=== PATIENT | male | born 1985 | race Caucasian/White ===

== ENCOUNTER 2017-10-12 19:09 | Emergency (ER) | payer BC, SELFPAY ==
[2017-10-12 19:11] VITALS: BP 146/113; PULSE 92; PULSE 98; RESP 14; RESP 18; TEMP 36.7; O2SAT 98; BMI 32.8
[2017-10-12] MEDS: HYDROmorphone 1 MG/ML Syringe IM (21:09)
[2017-10-12 21:13] VITALS: RESP 14
--- NOTE | 2017-10-12 22:06 | ED.VISSUMM ---
- ER Visit Summary Date of Service: 10/12/17 Chief Complaint: Abscess History of Present Illness: The patient is a 32 M with no primary care physician. He reports that he has an abscess left buttock that began yesterday. Is a sharp pain is 1010 at worst and 9 out of 10 currently. Is worsened by sitting or walking. Is relieved by nothing. He denies any fever, chills, nausea, vomiting, or other constitutional symptoms. Physical Examination: Vitals: Stable. Afebrile. General: Well-nourished and well-developed. Head: Normocephalic atraumatic. Neck: Supple, no lymphadenopathy. No JVD. Nontender. Cardiovascular: Regular rate and rhythm. No murmurs. Respiratory: No respiratory distress. Clear to auscultation bilaterally. Abdominal: Soft, nontender, nondistended, normal bowel sounds. No guarding, rebound, or peritoneal signs. Back: Nontender. Extremities: Nontender, no edema. Skin: 3 cm erythematous, indurated area superior left gluteal cleft. This is not in the pilonidal location. Neurologic: Alert and oriented ?3. Cranial nerves II through XII are intact. Normal strength and sensation. Psych: Normal affect. Emergency Department Course and Treatment: Patient was given a milligram of Dilaudid IM. He had an I&D performed. He tolerated it well. He was given Augmentin here. Treatment Plan: Patient be discharged with Augmentin and Ariton. Instructed to follow-up with Dr. Tinoco in 3-5 days for another exam. Return to the emergency department for any worsening symptoms. Disposition: To home in improved and stable condition. Impression: 1. Left gluteal abscess. 2. I&D. Procedure Note: Abscess was cleansed with chlorhexidine soap. Anesthetized with 1% lidocaine without epinephrine. An incision was made with an 11 scalpel blade. A moderate amount of pus was drained. Curved hemostats were used to break up loculations. The wound was copiously irrigated with normal saline. It was loosely packed with iodoform gauze. The patient tolerated it well. This note was generated with [employer] dictation software. It may contain incorrect words, spelling, and punctuation that were not noted in review of the chart prior to signing ED Disposition - Plan for ED Patient: Disposition: Home or Assisted Living Chief Complaint: Abscess Instructions: ED Abscess IandD Prescriptions: Amox/Clavulanate Tablet [Augmentin Tablet] 875 mg PO Q12H #20 tablet Hydrocodone/Acetaminophen [Ariton 5-325 Tablet] 1 - 2 each PO 4X/DAY PRN PRN 5 Days #20 tablet PRN Reason: Pain Referrals: Magali Weiss MD [STAFF PHYSICIAN] - 3-5 Days
[2017-10-12] MEDS: HYDROcodone Bitartrate/Apap 5/325 Tablet PO (22:27)
[2017-10-12] MEDS: Amox/Clavulanate 875 MG Tablet PO (22:28)
[2017-10-12 22:29] VITALS: PULSE 90; RESP 16
== END 2017-10-12 22:31 | disposition home or self-care (01) ==
LOC: ED 20:27
PROVIDERS: Emergency Provider Emergency Medicine
DX: L02.31 Cutaneous abscess of buttock (principal); B96.89 Other specified bacterial agents as the cause of diseases classified elsewhere
CPT/HCPCS: 10061; 10060; 96372; 99283

== ENCOUNTER 2022-02-21 21:08 | Emergency (ER) | payer BC, SELFPAY ==
[2022-02-21 21:10] VITALS: BP 127/77; PULSE 94; RESP 20; TEMP 36.2; BMI 35.2
--- NOTE | 2022-02-21 21:30 | EKG12_ITS ---
Test Reason : CP Blood Pressure : / mmHG Vent. Rate : 100 BPM Atrial Rate : 100 BPM P-R Int : 160 ms QRS Dur : 088 ms QT Int : 354 ms P-R-T Axes : 057 053 027 degrees QTc Int : 456 ms Normal sinus rhythm ST & T wave abnormality, consider anterolateral ischemia Abnormal ECG Confirmed by CULLEN ZAFAR, JEREMIAS ([id number]), material expeditor JAVIER HDEZ ([id number]) on 02/22/2022 11:44:56 AM Referred By: PL Confirmed By:JEREMIAS BERMAN MD
--- NOTE | 2022-02-21 21:31 | ED.VIS.CHEST ---
HPI History of Present Illness Chief Complaint: Chest Pain Informant: patient Narrative Narrative: Patient presents with anterior chest pain. 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 He was wearing full turnout gear and SC BA. He started get pain across the anterior chest. He did feel a little short of breath when he was exerting himself in equipment but not as soon as he stopped. He was very sweaty but he was in heavy turnout gear and its normal to sweat and that. He did not get nauseated. He did not get lightheaded. He took to gear off and drank some water. It did continue for a while before it abated and that is what made him come in. He states now he is not having it but occasionally he will feel just a little twinge of pain. But no other symptoms. He has never had this before. 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 No long distance. He has never had DVT or PE. The pain was not pleuritic. He quit smoking about a month ago. He has not family history of heart disease but not until the age of 66. He does not have known high blood pressure cholesterol or diabetes. He has never had heart problems before. PFSH PFSH Medical History no medical history Home Medications NK 02/21/22 [History Last Taken Unknown] Allergy/AdvReac Type Severity Reaction Status Date / Time No Known Allergies Allergy Verified 02/21/22 21:08 Family History no significant family his Surgical History no surgical history Social History Smoking Status: Former smoker ROS ROS ED Constitutional Constitutional ED: Denies chills or fever(s) Eyes Eyes: Denies blurry vision or change in vision ENT ENT ED: Denies rhinorrhea or sore throat Cardiovascular Cardiovascular: Reports as per HPI Respiratory/Chest Respiratory/Chest: Reports dyspnea; Denies cough Gastrointestinal Gastrointestinal: Denies abdominal pain, nausea or vomiting Musculoskeletal Musculoskeletal: Denies back pain or neck pain Integumentary Denies rash Neurologic Neurologic: Denies headache(s) or paresthesias Psychiatric Psychiatric: Denies anxiety Endocrine Endocrinology: Denies polydipsia or polyuria Hematologic/Lymphatic Hematologic/Lymphatic: Denies lymphadenopathy Allergic/Immunologic Allergic/Immunologic ED: Denies urticaria EXAM Physical Exam Const Vital Signs: 02/21/22 21:10 02/21/22 21:16 02/21/22 21:30 Temperature 97.2 F L Temperature Source Temporal Pulse Rate 94 Respiratory Rate 20 H Respiratory Effort Normal Non-Labored Blood Pressure 127/77 H Blood Pressure Mean 93 Oxygen Delivery Method Room Air 02/21/22 22:08 02/21/22 23:08 02/22/22 00:09 Temperature Temperature Source Pulse Rate 84 83 Respiratory Rate 18 16 17 Respiratory Effort Blood Pressure 125/68 H 125/62 H Blood Pressure Mean 87 83 Oxygen Delivery Method Room Air Positive well nourished and obese General Appearance ED: NAD Nutritional Appearance: obese HEENT Reports moist mucous membranes Eyes General Eye ED: Negative for pale conjunctiva or scleral icterus Neck no lymphadenopathy Chest Wall inspection of chest normal and palpation of chest normal Chest Narrative: No reproducible tenderness. Resp normal respiratory effort Cardio regular rate, regular rhythm and no murmurs Rate: other Other Details: Heart rate is running about 90s. But this may be from the dehydration after spending hours in turnout gear. ; Negative for bradycardia GI normal to inspection, nondistended, normoactive bowel sounds, soft to palpation and non-tender Extremity normal to inspection Extremity Narrative: No cord edema or asymmetry. General Extremety ED: Negative for edema, pulses abnormal or tenderness General Extremity: Negative for edema or pulses abnormal Neuro Sensorium / Orientation: awake and alert Psych mental status grossly normal Skin no rashes or lesions noted Heart Score History: Slightly/Non-Suspicious ECG: Nonspecific Repolarization Age: </= 45 years Risk Factors: 1 or 2 Risk Factors Troponin: </= Normal Limit Score: 2 MDM MDM MDM Narrative Medical decision making narrative: Patient's x-ray shows no acute process. White count was minimally elevated possibly due to stress. Troponin was negative. Repeat troponin went up but it still within the normal range. We repeat his EKG that still shows nonspecific changes of a similar pattern. I did discuss case with the hospitalist. But with his low heart score, still normal troponin it was felt that he is appropriate for outpatient stress test. We will refer him for this. We did discuss reasons to return. Lab Data Attestation: I reviewed the patient's lab results. Labs: Laboratory Results - last 24 hr 02/21/22 02/21/22 02/22/22 21:58 21:58 00:13 WBC 12.1 H RBC 4.98 Hgb 14.6 Hct 42.7 MCV 85.7 MCH 29.3 MCHC 34.2 RDW Std Deviation 39.6 RDW Coeff of Constantin 12.7 Plt Count 326 MPV 8.9 Immature Gran % (Auto) 0.700 Neut % (Auto) 57.1 Lymph % (Auto) 32.5 [place] % (Auto) 7.1 Eos % (Auto) 2.0 Baso % (Auto) 0.6 Absolute Neuts (auto) 6.9 Absolute Lymphs (auto) 3.94 Nucleated RBC % 0 Sodium 141 Potassium 3.4 L Chloride 107 Carbon Dioxide 24.0 Anion Gap 10 BUN 17 Creatinine 1.05 Estim Creat Clear Calc 101.39 Est GFR (MDRD) Af Amer 103 Est GFR (MDRD) Non-Af 85 BUN/Creatinine Ratio 16.2 Glucose 110 H Calcium 8.7 Troponin I High Sens 31 67 Radiography Diagnostic Testing: Clinical Impression(s) from Imaging Studies Chest X-Ray 02/21/22 22:42 IMPRESSION: Negative chest radiograph. Electronically Signed: Jose Antonio Melton MD at 23:58 EST Reading Location ID and State: [facility] / [place] Tel , Service support , Single view chest x-ray looked at by me and read by radiology shows no acute process. EKG Initial EKG: Comments: EKG done for chest pain read by me shows sinus rhythm with overall rate of 100. He does have some nonspecific ST and T wave changes. There are some early T wave inversion inferiorly and laterally. No acute ST elevation. MT interval, QRS duration and QTc are normal. I do not have a prior on our system. Follow-up EKG: Comments: Repeat EKG showed normal sinus rhythm with overall rate of 72. No ventricular ectopy. There were still nonspecific ST and T wave changes similar pattern to first. MT interval, QRS duration and QTc are normal. Discharge Plan Triage Chief Complaint: Chest Pain ED Provider: Jordan Durbin Dx/Rx/DC Orders Clinical Impression: Chest pain Instructions: ED Chest Pain, Uncertain Cause Prescriptions: No Action NK Primary Care Provider: Care Physician,No Primary Referrals: Ramonita Camarena MD [Med Staff - Farm Management Supervisor] - As soon as possible Care Physician,No Primary [Primary Care Provider] - Disposition Disposition: Home, Self Care
[2022-02-21 22:08] VITALS: RESP 18
[2022-02-21 22:10] LABS: Absolute Lymphocyte Count 3.94 X10^3/uL (0.83-4.51); Absolute Neutrophil Count 6.9 X10^3/uL (2.0-7.7); Basophil# 0.07 X10^3/uL; Basophil% 0.6 % (0-1); Eosinophil# 0.24 X10^3/uL; Hematocrit 42.7 % (40-54); Hemoglobin 14.6 g/dL (13.0-16.5); Lymphocyte # 3.94 X10^3/ul (0.83-4.51); Lymphocyte % 32.5 % (19-41); Mean Corp Hgb Conc 34.2 g/dL (32-36); Mean Corpuscular Hgb 29.3 pg (27.0-32.0); Mean Corpuscular Volume 85.7 fL (80-94); Mean Platelet Vol. 8.9 fl (6.2-12.0); Monocyte# 0.86 X10^3/uL; Monocyte% 7.1 % (0-10); NRBC Flagged by Analyzer 0 % (0-5); Neutrophil # 6.92 X10^3/uL (2.7-7.7); Neutrophil % 57.1 % (47-70); Platelet Count 326 K/mm3 (150-450); RBC Distribution Width CV 12.7 % (11.6-14.6); RBC Distribution Width SD 39.6 fl (35.1-43.9); Red Blood Count 4.98 M/mm3 (4.6-6.2); White Blood Count 12.1 K/mm3 (4.4-11.0)
[2022-02-21 22:34] LABS: Anion Gap 10 (5-15); BUN 17 mg/dL (7-18); BUN/Creat Ratio 16.2 RATIO (10-20); Calcium,Total 8.7 mg/dL (8.5-10.1); Chloride 107 mmol/L (98-107); Creatinine, Serum 1.05 mg/dL (0.70-1.30); EST Glomerular Filtration Rate 85 mL/min (>60); Est Glom Filt Rate - Afr Amer 103 mL/min (>60); Estimated Creatinine Clearance 101.39 ml/min; Glucose 110 mg/dL (74-106); Potassium 3.4 mmol/L (3.5-5.1); Sodium Level 141 mmol/L (136-145); Troponin-I HS (w/2H Reflex) 31 pg/mL (3.0-78.0)
--- NOTE | 2022-02-21 22:42 | RAD_ITS ---
STUDY: X-RAY CHEST REASON FOR EXAM: Male, 36 years old. Chest pain. TECHNIQUE: AP portable upright COMPARISON: None. FINDINGS: LUNGS: No apparent pneumothorax, pneumonia, pleural effusion, or edema. MEDIASTINUM, SOCORRO: Cardiac silhouette, socorro and mediastinal contours are within normal limits. BONES: No acute osseous abnormality. UPPER ABDOMEN: No evidence of free air under the diaphragm. RAD/Chest 1 View (Portable) IMPRESSION: Negative chest radiograph. Electronically Signed: Jose Antonio Melton MD at 23:58 EST Reading Location ID and State: [facility] / [place] Tel , Service support ,
[2022-02-21 23:08] VITALS: BP 125/68; PULSE 84; RESP 16
[2022-02-22 00:07] LABS: Reflex Troponin-HS? (from REC) Y
[2022-02-22 00:09] VITALS: BP 125/62; PULSE 83; RESP 17
[2022-02-22 00:42] LABS: Troponin-I HS 67 pg/mL (3.0-78.0)
--- NOTE | 2022-02-22 00:49 | EKG12_ITS ---
Test Reason : REPEAT EKG Blood Pressure : / mmHG Vent. Rate : 072 BPM Atrial Rate : 072 BPM P-R Int : 188 ms QRS Dur : 100 ms QT Int : 414 ms P-R-T Axes : 054 052 045 degrees QTc Int : 453 ms Normal sinus rhythm Nonspecific T wave abnormality Abnormal ECG Confirmed by CULLEN ZAFAR, JEREMIAS ([id number]), newspaper editor JAVIER HDEZ ([id number]) on 02/22/2022 11:45:11 AM Referred By: ANDREIA Confirmed By:JEREMIAS BERMAN MD
[2022-02-22 01:33] VITALS: BP 127/82; PULSE 77; RESP 22
== END 2022-02-22 01:39 | disposition home or self-care (01) ==
PROVIDERS: Emergency Provider Emergency Medicine; Visit Provider Emergency Medicine
DX: R07.9 Chest pain, unspecified (principal); R06.02 Shortness of breath; Z87.891 Personal history of nicotine dependence
CPT/HCPCS: 71045; 80048; 84484; 85025; 93005; 99285; A4216